=== PATIENT | female | born 1940 | race Caucasian/White ===

== ENCOUNTER 2018-10-28 08:39 | Inpatient (IN) ==
[2018-10-28] MEDS ORDERED: DUONEB (A & A) INH ONE ×2 (08:48→10:41)
[2018-10-28] MEDS ORDERED: LASIX IV ONE (08:49)
[2018-10-28 09:23] LABS: BASO# 0.01 X1000 (0.0-0.2); BASO% 0.2 % (0.0-0.8); EOS# 0.13 X1000 (0.0-0.7); EOS% 2.1 % (0.0-10.0); HEMATOCRIT 31.8 % (37.0-47.0); IMM GRAN# 0.05 X1000 (0.0-0.04); IMM GRAN% 0.8 % (0.0-0.5); LYMPH# 0.91 X1000 (1.2-3.4); LYMPH% 14.9 % (20.5-51.1); MCH 27.7 PG (27-31); MCHC 28.3 g/dL (33-37); MCV 97.8 FL (81-99); MONO# 0.25 X1000 (0.11-0.59); MONO% 4.1 % (1.7-9.3); MPV 10.6 FL (7.4-10.4); NEUT# 4.76 X1000 (1.4-6.5); NEUT% 77.9 % (42.2-75.2); PLT 194 X1000 (130-400); RBC 3.25 XMIL (4.2-5.4); RDW 18.9 % (11.5-14.5); WBC 6.11 X1000 (4.8-10.8)
[2018-10-28 09:26] LABS: BE 3.3 mmoll (-3.0-3.0); BLOOD TYPE ARTERIAL; HCO3-(ACT) 27.5 mmoll (20.0-26.0); METHB 1.1 % (0.0-1.5); O2(CT) 11.9 mL/dL (15.0-23.0); O2HB 94.9 % (95.0-99.0); PCO2(98.6) 49 mmHg (35-45); PO2(98.6) 100 mmHg (60-100); SAMPLE BLOOD; SAO2 98.5 % (95.0-100.0); THB 8.8 g/dL (11.5-17.4); pH(98.6) 7.38 (7.35-7.45)
--- NOTE | 2018-10-28 09:27 | EKG Report ---
Test Performed on : 10/28/2018 09:06:51 AM Test Reason : cough Blood Pressure : / mmHG Vent. Rate : 081 BPM Atrial Rate : 081 BPM P-R Int : 154 ms QRS Dur : 168 ms QT Int : 434 ms P-R-T Axes : 055 005 159 degrees QTc Int : 504 ms Normal sinus rhythm. Left bundle branch block Abnormal ECG When compared with ECG of 28-OCT-2018 09:06, (Unconfirmed) No significant change was found Unconfirmed Result
[2018-10-28 09:28] LABS: ALLEN TEST YES; MODALITY CANNULA
--- NOTE | 2018-10-28 09:29 | Diag Imaging Result Doc PS360 ---
CHEST-PORTABLE - 10/28/2018 INDICATION: cough COMPARISON: 10/11/2018 FINDINGS: There is worsening cardiomegaly and pulmonary vascular congestion. There is worsening diffuse bilateral interstitial pulmonary edema. There are small bilateral pleural effusions. IMPRESSION: Worsening from prior. Electronically signed by Miguel Mtz 10/28/2018 9:26 AM
[2018-10-28 09:40] LABS: INR 0.97; PROTIME 13.4 Seconds (11.0-16.0)
[2018-10-28 09:41] LABS: PTT 32.2 Seconds (22.3-41.8)
[2018-10-28 09:53] LABS: AGAP 11; ALBUMIN 3.6 g/dL (3.5-5.0); ALKALINE PHOSPHATASE 108 U/L (32-104); BUN 38 mg/dL (8-22); CHLORIDE 102 mmol/L (98-107); COSMO 298; CREATININE 1.9 mg/dL (0.5-0.9); ESTIMATED GFR 26; GLUCOSE 232 mg/dL (70-104); GOT 20 U/L (10-30); GPT < 5 U/L (10-36); SODIUM 141 mmol/L (136-145); TCO2 28 mmol/L (25-35); TOTAL PROTEIN 7.5 g/dL (6.3-8.3)
[2018-10-28 09:55] LABS: POTASSIUM 6.6 mmol/L (3.5-5.1)
[2018-10-28] MEDS ORDERED: CALCIUM CHLORIDE SYRINGE IV ONE (09:57)
[2018-10-28] MEDS ORDERED: D50W SYRINGE IV ONE (10:41)
[2018-10-28] MEDS ORDERED: HUMALOG (PARKWAY) IV ONE (10:41)
[2018-10-28] MEDS ORDERED: KAYEXALATE PO ONE ×2 (10:59→17:00)
[2018-10-28] MEDS ORDERED: CALCIUM GLUCONATE 1 GM in NS 50 ML IV ONE (11:34)
[2018-10-28] MEDS ORDERED: HUMULIN R (PARKWAY) IV ONE (11:35)
[2018-10-28] MEDS ORDERED: ZOFRAN IV PRN (13:13)
[2018-10-28] MEDS ORDERED: TYLENOL PO PRN (13:13)
[2018-10-28] MEDS ORDERED: NS 1,000 ML IV SCH (13:15)
[2018-10-28] MEDS ORDERED: NORCO-7.5 PO PRN (14:59)
[2018-10-28 15:15] LABS: CALCIUM 8.9 mg/dL (8.8-10.2); POTASSIUM 5.5 mmol/L (3.5-5.1)
[2018-10-28] MEDS: DUONEB (A & A) INH SCH ×3 (15:32→22:46)
[2018-10-28] MEDS: NEURONTIN PO SCH ×2 (15:56→22:52)
[2018-10-28 16:38] LABS: COLOR YELLOW
[2018-10-28 16:39] LABS: BILIRUBIN URINE NEGATIVE (NEGATIVE); BLOOD URINE NEGATIVE (NEGATIVE); CLARITY CLEAR (CLEAR); GLUCOSE URINE NEGATIVE (NEGATIVE); KETONE URINE NEGATIVE (NEGATIVE); LEUKOCYTES URINE NEGATIVE (NEGATIVE); NITRITE URINE NEGATIVE (NEGATIVE); PROTEIN URINE 2+(100 mg/dL) mg/dL (NEGATIVE); SP GRAVITY URINE 1.015; URINE SOURCE CLEAN CATCH; UROBILINOGEN URINE NORMAL
[2018-10-28 16:41] LABS: URINE BACTERIA 1+ /HFP; URINE CAST NONE SEEN /LPF; URINE CRYSTAL NONE SEEN /HPF; URINE EPITHELIAL CELLS >10 /HPF (<10); URINE RBC <10 /HPF (<10); URINE WBC <10 /HPF (<10); URINE YEAST NONE SEEN /HPF
[2018-10-28] MEDS: LASIX IV SCH (19:44)
[2018-10-28] MEDS: ROBITUSSIN-DM PO PRN ×2 (19:48→23:50)
[2018-10-28] MEDS: REQUIP PO SCH (20:02)
[2018-10-28] MEDS: COREG PO SCH (20:03)
[2018-10-28] MEDS ORDERED: BASAGLAR SUBQ SCH (21:00)
[2018-10-28] MEDS ORDERED: INSULIN PEN NEEDLES ONE (21:09)
[2018-10-28] MEDS ORDERED: ATIVAN PO ONE (22:17)
--- NOTE | 2018-10-29 00:03 | HISTORY AND PHYSICAL ---
CHIEF COMPLAINT: Shortness of breath and cough. HISTORY OF PRESENT ILLNESS: This is a 78-year-old female who is well known to our service from prior admissions. She presents to the emergency room this evening complaining of shortness of breath and cough which is persistent for Ms Bryson. She is unable to state how long this has been present. She just stated for a long time. She reported falling a few days ago and she is noted to have an area of ecchymosis noted to her posterior neck. The family stated that she had been retaining more fluid than normal and that she is weeping from bilateral lower extremities. The patient does have home O2. EMS reported that she had approximately 30 foot tubing set on her nasal cannula which was set on 2 L and she did have a saturation in the high 90s with this. Her initial oxygen saturation was 83% and this was on 3 L nasal cannula. She was given IV Lasix as well as DuoNebs and supplemental oxygen and O2 sats have been 96 to 97% on 3 L nasal cannula. Chest x-ray revealed worsening cardiomegaly and pulmonary vascular congestion as well as diffuse bilateral interstitial pulmonary edema. PAST MEDICAL HISTORY: Urinary incontinence, restless legs syndrome, hypertension, diabetes mellitus, congestive heart failure with an EF of 20% in February 2018, hypothyroid, and gastroesophageal reflux disease. PAST SURGICAL HISTORY: She has got a bladder InterStim. She has had a right bladder suspension, hiatal hernia, hysterectomy, colon resection, cholecystectomy, right knee replacement. SOCIAL HISTORY: Denies alcohol, tobacco, or illicit drug use. ALLERGIES: Adhesives, amoxicillin, Cipro, Biaxin, Levemir, Levaquin and Zanaflex. HOME MEDICATIONS: A list will be obtained by the nursing staff and once verified we will review and restart as appropriate. REVIEW OF SYSTEMS: Discussed with the patient with pertinent positives stated in HPI. She denied any syncope, dizziness, any chest pain or palpitations, any nausea, vomiting, diarrhea, constipation, black or bloody vomitus or stools, hematuria, dysuria, frequency, urgency. PHYSICAL EXAMINATION: GENERAL: This is a 78-year-old female who is lying on the stretcher in ICU in no distress. VITAL SIGNS: Blood pressure is 159/80 with a heart rate of 89, respirations are 19, temperature is 97.4 degrees oral with O2 saturation 96 to 97% on 3 L nasal cannula. EYES: Pupils are equal, round, react to light. EOMs are intact. Sclerae are anicteric. Mucous membranes are moist. NECK: Supple with trachea midline. CARDIOVASCULAR: Regular rate and rhythm. S1 and S2 appreciated. She does have bilateral lower extremity edema. PULMONARY: She is noted to have rhonchi throughout that do not clear to cough. Chest rises and falls symmetric with respiration. GASTROINTESTINAL: Abdomen is soft, nontender, nondistended with bowel sounds in all 4 quadrants. GENITOURINARY: She denies any CVA nor suprapubic tenderness. SKIN: Warm and dry. NEUROLOGIC: She is alert. She is oriented to herself, her family members and she knows she is at the hospital. LABS: WBC is 6.1 with hemoglobin 9, hematocrit 31.8, platelets of 194,000. Sodium is 141, potassium is 6.6, BUN is 38, creatinine 1.9 with a glucose of 232. ProBNP is 8420. Blood cultures are pending. Chest x-ray revealed worsening cardiomegaly and pulmonary vascular congestion. ASSESSMENT AND PLAN: 1. Hyperkalemia. 2. Congestive heart failure, acute exacerbation. 3. Chronic kidney disease. 4. Diabetes mellitus. 5. Dementia. 6. Restless legs syndrome. 7. Hypothyroid. PLAN: The patient will be admitted to ICU for close monitoring. Of course she will be on telemetry. We will give supplemental oxygen with DuoNebs q.4 hours. We will identify her home medications and continue these as is appropriate. She will be placed on pattern blood glucose with sliding scale insulin. We will do strict I O with daily weights. We will check a TSH. Further treatments pending hospital course. Dictated by JADA Flores for Eyal Avilez MD This chart was documented by, JADA Flores and accurately reflects the services performed, treatment plan and medical decisions as attested by the providers signature Eyal Avilez MD. cc: JADA Flores MD
--- NOTE | 2018-10-29 00:15 | HISTORY AND PHYSICAL ---
ADDENDUM: The patient is seen and admitted through the ER. Full note dictated and discussed by nurse practitioner. Patient is having some issues with confusion. She thinks that the reason her legs have been swelling and that she has been short of breath is that she has been using oxygen at home. She has a known history of congestive heart failure. Per the family does not have a history of COPD. We will admit her to the hospital, stop her potassium supplements which she is taking at home, use Lasix for her congestive heart failure. She has already been given calcium gluconate and we will follow. Please see full note. cc: Eyal Avilez MD
[2018-10-29] MEDS ORDERED: LASIX IV ONE (02:14)
[2018-10-29] MEDS: DUONEB (A & A) INH SCH ×6 (02:30→23:13)
[2018-10-29] MEDS: ROBITUSSIN-DM PO PRN (05:20)
[2018-10-29 06:09] LABS: HEMATOCRIT 31.7 % (37.0-47.0); HEMOGLOBIN 8.7 g/dL (12.0-16.0); MCHC 27.4 g/dL (33-37); MCV 98.4 FL (81-99); MPV 10.9 FL (7.4-10.4); RBC 3.22 XMIL (4.2-5.4); RDW 18.8 % (11.5-14.5); WBC 7.88 X1000 (4.8-10.8)
[2018-10-29] MEDS ORDERED: INSULIN PEN NEEDLES MISC PRN (06:22)
[2018-10-29 06:31] LABS: ALBUMIN 3.3 g/dL (3.5-5.0); CALCIUM 8.5 mg/dL (8.8-10.2); CREATININE 1.7 mg/dL (0.5-0.9); POTASSIUM 3.9 mmol/L (3.5-5.1); TOTAL BILIRUBIN 0.6 mg/dL (0.20-1.00)
[2018-10-29] MEDS: PROTONIX PO SCH (07:15)
[2018-10-29] MEDS: NEURONTIN PO SCH ×3 (07:42→23:01)
[2018-10-29] MEDS: LASIX IV SCH ×2 (08:15→19:55)
--- NOTE | 2018-10-29 08:33 | Diag Imaging Result Doc PS360 ---
CHEST-PORTABLE - 10/29/2018 INDICATION: FU pulmonary edema. COPD hx COMPARISON: 10/28/2018 FINDINGS: Stable cardiomegaly. Stable dense bilateral pulmonary edema. Stable small to moderate bilateral pleural effusions. IMPRESSION: No change from prior. Electronically signed by Miguel Mtz 10/29/2018 8:31 AM
[2018-10-29] MEDS: COREG PO SCH ×2 (08:52→21:01)
[2018-10-29] MEDS: NORVASC PO SCH (08:52)
[2018-10-29] MEDS: ARICEPT PO SCH (08:52)
[2018-10-29] MEDS ORDERED: MORPHINE IV ONE (11:06)
[2018-10-29] MEDS: ATIVAN IV PRN (12:58)
[2018-10-29] MEDS: MORPHINE IV PRN ×2 (15:00→18:27)
[2018-10-29] MEDS: REQUIP PO SCH (21:02)
--- NOTE | 2018-10-29 22:12 | PROGRESS NOTE ---
DATE: 10/29/2018 SUBJECTIVE: The patient had an eventful night. She was placed on BiPAP. She continues to have difficulty breathing. PHYSICAL EXAMINATION: Temp 97, pulse 94, respiratory 25, BP 152/65.General: Patient is awake. She is in moderate respiratory distress. She is pleasant. She answers questions appropriately. HEENT: Normocephalic. Neck: Supple. CARDIOVASCULAR: Regular rate. Chest: Clear, although greatly decreased, moderately labored. Abdomen: Soft, nondistended. Extremities: Moves all extremities. ASSESSMENT: 1. Do Not Resuscitate level 1. 2. Hyperkalemia, resolved. 3. Acute on chronic renal failure. 4. Diabetes. 5. Congestive heart failure with acute exacerbation. 6. COPD with acute exacerbation. 7. Hypertension. PLAN: Overall, patient continues to decline. She currently is on BiPAP. She has had a good urine output. Her EF in February of 2018 was 20%. As she is DNR, we discussed with the family and will move her to the floor. We will not escalate her care at this point. We will continue BiPAP as it does appear to be making her more comfortable. Continue Lasix and will follow. cc: Eyal Avilez MD
[2018-10-30] MEDS: DUONEB (A & A) INH SCH ×5 (03:15→22:17)
[2018-10-30] MEDS: MORPHINE IV PRN ×3 (05:44→23:26)
[2018-10-30] MEDS: PROTONIX PO SCH (06:02)
[2018-10-30] MEDS: ATIVAN IV PRN ×2 (06:39→18:16)
[2018-10-30] MEDS: NEURONTIN PO SCH ×3 (09:40→23:05)
[2018-10-30] MEDS: ARICEPT PO SCH (09:40)
[2018-10-30] MEDS: COREG PO SCH (09:41)
[2018-10-30] MEDS: NORVASC PO SCH (09:41)
[2018-10-30] MEDS: LASIX IV SCH (09:48)
[2018-10-30] MEDS ORDERED: HALDOL IV PRN (19:17)
[2018-10-30] MEDS ORDERED: TRANSDERM-SCOP TD SCH (19:30)
--- NOTE | 2018-10-30 19:41 | PROGRESS NOTE ---
DATE: 10/30/2018 SUBJECTIVE: The patient has no major complaints. She is sleeping restively on the bed with increased work of breathing. OBJECTIVE: Vital signs: Blood pressure 148/52, heart rate 95, respiratory rate 14, temperature 98 degrees. Cardiovascular: Regular rate and rhythm. Pulmonary: Bilateral breath sounds clear to auscultation with diffuse wheezing and rhonchi. LABORATORY DATA: No new data today. PROBLEM LIST: 1. Acute congestive heart failure (CHF) systolic heart failure exacerbation. She continues to decline, and family does not want to be further aggressive. 2. Acute on chronic renal failure with hyperkalemia. That had appeared to be resolving. We have not checked any new labs. 3. Chronic obstructive pulmonary disease (COPD). Baseline issue with tobacco abuse, but she seems to be doing better. We will continue breathing treatments. DISPOSITION: It is not certain how long she will be able to maintain this, but we will likely have to continue hospice and see how she does with that. cc: MD Eyal Uribe MD
[2018-10-30] MEDS: REQUIP PO SCH (20:20)
[2018-10-31] MEDS: DUONEB (A & A) INH SCH ×5 (03:33→20:05)
[2018-10-31] MEDS: ATIVAN IV PRN ×3 (03:38→23:08)
[2018-10-31] MEDS: MORPHINE IV PRN ×6 (03:38→23:38)
[2018-10-31] MEDS: NEURONTIN PO SCH ×3 (07:59→22:49)
--- NOTE | 2018-10-31 15:45 | PROGRESS NOTE ---
DATE: 10/31/2108 SUBJECTIVE: The patient has no major complaints. She is waking up a little bit. OBJECTIVE: Blood pressure is 152/56, heart rate 96, respiratory rate 20, temperature 98.8 degrees, 91% on non-rebreather.Cardiovascular: tachycardic Pulmonary: Diffuse rhonchi and wheezing. GI: Soft, nontender, nondistended. Bowel sounds are positive. LABORATORY DATA: No new data today. PROBLEM LIST: 1. Congestive heart failure exacerbation systolic. We are going to continue supportive measures. 2. Acute on chronic renal failure overall slowly improving. 3. Chronic obstructive pulmonary disease. We will continue breathing treatments and follow. We are just working on trying to keep her comfortable overall. 4. Disposition. Pursuing comfort care measures. Will get a hospice evaluation today. She is agitated periodically. She is more awake today than she was before. Her family states she has been fairly agitated off and on so we are working on trying to get that situated. We will continue to monitor closely. We are looking at a GIP. She does not seem to be completely controlled as far as her behaviors and her level of anxiety I would say is not controlled currently on her current measures. We will continue treatment. Her O2 issues have been an issue but will continue to follow closely. cc: Scott Alcazar MD [facility]
[2018-10-31] MEDS: REQUIP PO SCH (22:49)
[2018-11-01] MEDS: DUONEB (A & A) INH SCH ×8 (00:01→19:56)
[2018-11-01] MEDS: ATIVAN IV PRN ×4 (04:38→17:43)
[2018-11-01] MEDS: NEURONTIN PO SCH ×2 (07:38→15:18)
[2018-11-01] MEDS: MORPHINE IV PRN ×3 (09:56→19:40)
[2018-11-01] MEDS: ATROPINE 1 % OPHTH SOLN OPH PRN ×2 (14:44→17:07)
[2018-11-01] MEDS: REQUIP PO SCH (20:03)
[2018-11-01] MEDS ORDERED: TYLENOL PR PRN (20:14)
--- NOTE | 2018-11-01 23:41 | PROGRESS NOTE ---
DATE: 11/01/2018 SUBJECTIVE: The patient has no focal complaints. OBJECTIVE: Blood pressure is 145/55. Her heart rate has jumped up to 121. She has a temperature of a 100.4 degrees. She is tachycardic, in the 120s, 98% on non-rebreather. She sounds very gurgly, like she is just having a lot of gurgling. ASSESSMENT AND PLAN: It looks like she is not doing as well. I think her condition is progressing, unfortunately. We will continue comfort measures and follow closely. She is on morphine, Ativan, and symptomatic control of her multiple issues. We will continue to follow. cc: Scott Alcazar MD
[2018-11-02] MEDS: DUONEB (A & A) INH PRN ×2 (00:10→03:12)
[2018-11-02 07:54] VITALS: BP 123/39
[2018-11-02] MEDS: ATROPINE 1 % OPHTH SOLN OPH PRN ×3 (09:41→17:53)
[2018-11-02] MEDS ORDERED: NORCO-10 PO ONE (16:14)
--- NOTE | 2018-11-02 16:43 | PROGRESS NOTE ---
DATE: 11/02/2018 SUBJECTIVE: Today I saw Ms Bryson. She was still in bed, very tachypneic. There were about 4 family members in her room. OBJECTIVE: Vital signs: Blood pressure was 123/39, pulse 71, respirations 23, temperature is 103.0 degrees, the patient was saturating about 94% on 15 L. General: Ms. Bryson is a 78-year- old female. She is in bed. HEENT: Mucosa is pink and moist. Anicteric. Acyanotic. Neck: Supple. She is still on a non-rebreather. Chest: Air entry is bilaterally reduced. There are crackles in both lungs. Cardiovascular: Tachycardic. Central nervous system: Patient is nonresponsive to even painful stimulation. Pupils are pinpoint and nonreactive. ASSESSMENT: 1. Acute hypoxemic respiratory failure. 2. Advanced systolic heart failure, in exacerbation. 3. Severe ischemic cardiomyopathy. 4. Pulmonary edema with bilateral pleural effusions secondary to congestive heart failure. 5. Chronic kidney disease (CKD), stage 3B. 6. Actively dying. Family have been notified PLAN: Comfort care measures. cc: Andriy Cisse MD MTDD
--- NOTE | 2018-11-04 02:13 | DISCHARGE SUMMARY ---
ADMISSION DATE: 10/28/2018 DISCHARGE DATE: 11/02/2018 DATE OF : 1940. DATE OF : 11/02/2018. TIME OF : 1829. CONSULTATIONS DURING THIS ADMISSION: None. IMAGING STUDIES OF SIGNIFICANCE: A chest x-ray was done initially on 10/28/2018, which showed worsening pulmonary congestion. A repeat chest x-ray the following day, 10/29/2018, showed dense bilateral pulmonary edema, stable [id number] bilateral pleural effusions. DIAGNOSES AT THE TIME OF ADMISSION: 1. Hyperkalemia. 2. [id number] renal failure. 3. Congestive heart failure exacerbation. 4. Chronic obstructive pulmonary disease. DIAGNOSES AT THE TIME OF : 1. Acute hypoxemic respiratory failure. 2. Advanced systolic heart failure in exacerbation, with known ejection fraction of 20 percent. 3. Severe dilated ischemic cardiomyopathy. 4. Pulmonary edema, with bilateral pleural effusions secondary to congestive heart failure. 5. Chronic kidney disease, stage 3B to 4. 6. Diabetes mellitus. 7. Hypertension. PRESENTING COMPLAINT: Shortness of breath and cough. HISTORY OF PRESENTING COMPLAINT: Ms. Bryson was a 78-year-old female with multiple comorbidities, including hypertension, diabetes, end-stage heart failure, with ejection fraction of 20%, and hypothyroid, who has had multiple hospital admissions recently. Presented to the emergency department because of ongoing shortness of breath and cough. The patient was evaluated at that time. Oxygen saturation was 83%. She was subsequently placed on nasal cannula oxygenation, which improved, and was admitted to the medical floor. Initially, Ms. Bryson was started on broad-spectrum antibiotics, nebulization therapy, steroids, and diuretic therapy. Her hospital course continued to decline. No significant improvement. Discussions were held with providers and the family members. She was already DNR level 1. She was made [employer]. By the time I got to see her on the day of her , she was showing active signs of , and all family members were at the bedside at the time of my early encounter. Later on in the afternoon, at 1629, I was notified by the nurses that Ms. Bryson had passed, and 2 of the nurses had pronounced her, and I have notified the family members. cc: Andriy Cisse MD
== END 2018-11-02 18:29 | disposition expired | DRG 291 ==
LOC: P.ED 08:39 → SUATTDRO 14:50 → P.ICU 14:50 → P.MEDSURG 10-29 18:08
PROVIDERS: ATTEND Internal Medicine
CPT/HCPCS: 71010; 71045; 80048; 80053; 81001; 82550; 82805; 82948; 83880; 84132; 84443; 84484; 85025; 85027; 85610; 85730; 87040; 93005; 94640; 94660; 94761; 96361; 96374; 96375; 99285; A9270; J0610; J1630; J1815; J1940; J2060; J2270; J2405; XXXXX